=== PATIENT | female | born 1950 | race Two or more races ===

== ENCOUNTER → 2024-05-25 | Outpatient (CLI) | payer MEDICARE, SELFPAY ==
[2024-05-25 13:26] LABS: Glucose Estimated Average 163 mg/dL (80-131); Hemoglobin A1C 7.3 % Hgb (4.8-6.0)
== END | disposition home or self-care (01) ==
LOC: COPL 12:17
PROVIDERS: PCP Family Medicine; Referring Provider Family Medicine; Visit Provider Family Medicine
DX: E11.65 Type 2 diabetes mellitus with hyperglycemia (principal)
CPT/HCPCS: 36415; 83036

== ENCOUNTER → 2024-08-24 | Outpatient (CLI) | payer MEDICARE, SELFPAY ==
[2024-08-24 10:36] LABS: Creatinine MALB Rnd Ur 80 mg/dL (30-125); Microalbumin Creat Ratio 25 mg/gCrea (<30); Microalbumin, Random Urine 20 mg/L (0-300)
[2024-08-24 10:39] LABS: Glucose Estimated Average 166 mg/dL (80-131); Hemoglobin A1C 7.4 % Hgb (4.8-6.0)
[2024-08-24 10:40] LABS: Cardiac Risk Estimate 2.6 RATIO (3.7-5.6); Cholesterol 135 mg/dL (132-200); Free T4 (Free Thyroxine) 1.28 ng/dL (0.89-1.76); HDL Cholesterol 52 mg/dL (40-60); LDL Cholesterol,Calculated 62 mg/dL (0-130); Thyroid Stimulating Hormone 0.45 uIU/mL (0.55-4.78); Triglycerides 104 mg/dL (30-150)
== END | disposition home or self-care (01) ==
LOC: COPL 09:01
PROVIDERS: PCP Family Medicine; Referring Provider Family Medicine; Visit Provider Family Medicine
DX: E03.9 Hypothyroidism, unspecified (principal); E11.65 Type 2 diabetes mellitus with hyperglycemia
CPT/HCPCS: 36415; 80061; 82043; 82570; 83036; 84439; 84443

== ENCOUNTER 2024-09-10 09:43 | Emergency (ER) | payer MEDICARE, SELFPAY ==
--- NOTE | 2024-09-10 10:16 | XR_ITS ---
Examination: PA lateral chest 2 views TECHNIQUE: Upright PA lateral chest 2 views Exam date and time: September 10, 2024 1038 hours Comparison February 03, 2023 INDICATIONS: Chest pain today. FINDINGS: Normal heart size. Lungs are clear. The osseous structures are intact with old fracture left seventh rib Chronic wedging T11 IMPRESSION: No active disease
--- NOTE | 2024-09-10 10:16 | EKG_ITS ---
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
--- NOTE | 2024-09-10 10:17 | PD.EDRME ---
Rapid Medical Screening Exam RME Arrival date/time: 09/10/24 09:43 74-year-old female with a history of hypertension, NSTEMI, presents to the emergency room with a chief complaint of palpitations that began this morning at 4 AM. Patient also states she had an episode of epistaxis that lasted over an hour with multiple clots. The patient is on blood thinners. I have greeted and performed a focused initial assessment of this patient. A comprehensive ED assessment and evaluation of the patient, analysis of all test results, and completion of the medical decision making process will be conducted by additional ED providers. Chief Complaint: Epistaxis/Nasal Foreign Body Time Seen by Provider: 09/10/24 10:00 Vital signs reviewed by provider: Yes
[2024-09-10 10:18] VITALS: BP 144/79; PULSE 78; RESP 18; TEMP 36.8; O2SAT 96; BMI 25.2
[2024-09-10 11:13] LABS: Collection Type, Urine Clean Catch
[2024-09-10 11:17] LABS: Basophils % (Auto) 1 % (0-2.5); Eosinophils # (Auto) 0.5 Thou/mm3 (0.0-0.5); Eosinophils % (Auto) 7 % (0-10); Hematocrit 37.2 % (36.0-46.0); Hemoglobin 11.6 g/dL (12.0-16.0); Immature Granulocytes % (Auto) 0 % (0-0); Immature Granulocytes Auto 0.02 Thou/mm3 (0.00-0.00); Lymphocytes # (Auto) 1.6 Thou/mm3 (1.0-4.8); Lymphocytes % (Auto) 21 % (10-50); Mean Corpuscular HGB Conc 31.2 g/dl (31.0-37.0); Mean Corpuscular Hemoglobin 24.3 pg (25.0-35.0); Mean Corpuscular Volume 78 fL (80-100); Monocytes # (Auto) 0.5 Thou/mm3 (0.0-0.8); Monocytes % (Auto) 6 % (0-12); Neutrophils # (Auto) 4.8 Thou/mm3 (1.8-7.7); Neutrophils % (Auto) 64 % (37-80); Nucleated Red Blood Cell % 0 /100 WBC (0); Platelet Count 274 Thou/mm3 (140-440); RDW Standard Deviation 47.9 fL (36.4-46.3); Red Blood Count 4.77 Miln/mm3 (4.00-5.20); White Blood Count 7.4 Thou/mm3 (3.6-11.0)
[2024-09-10 11:32] LABS: INR 0.9 (0.9-1.3); Partial Thromboplastin Time 27.5 Seconds (22.0-36.0); Prothrombin Time 10.3 Seconds (9.0-12.2)
[2024-09-10 11:33] LABS: Bilirubin,Urine Negative (Negative); Blood,Urine Negative (Negative); Clarity,Urine Clear (Clear/Hazy); Color,Urine Lt-Yellow (Lt Yel-Yel); Glucose, Urine 4+ (Negative); Ketones,Urine Negative (Negative); Leukocyte Esterase,Urine Negative (Negative); Nitrite,Urine Negative (Negative); PH,Urine 5.5 (5.0-7.0); Protein,Urine Negative (Neg - Trace); RBC,Urine 2 /hpf (0-3); Specific Gravity,Urine 1.038 (1.001-1.035); Squamous Epithelial Cell,Urine 2 /hpf (0-5); Urobilinogen,Urine Negative mg/dL (0.0-1.0); WBC,Urine 3 /hpf (0-5)
[2024-09-10 11:39] LABS: B-Type Natriuretic Peptide 28 pg/mL (0-100)
[2024-09-10 11:43] LABS: Alanine Aminotransferase 16 U/L (10-49); Albumin, Serum 4.5 gm/dL (3.4-4.8); Albumin/Globulin Ratio 1.5 (1.2-2.2); Alkaline Phosphatase 93 U/L (46-116); Anion Gap 9 (7-16); Aspartate Amino Transferase 11 U/L (0-34); BUN/Creatinine Ratio 25 Ratio (12-20); Bilirubin,Total 0.4 mg/dL (0.3-1.2); Blood Urea Nitrogen 20 mg/dL (9-23); Calcium 9.6 mg/dL (8.3-10.6); Calcium (Corrected) 9.6 mg/dL (8.5-10.1); Carbon Dioxide 24.7 mMol/L (20.0-31.0); Chloride 106 mMol/L (98-107); Creatinine (Component) 0.8 mg/dL (0.6-1.3); Free T4 (Free Thyroxine) 1.32 ng/dL (0.89-1.76); Glucose 132 mg/dL (74-106); Magnesium 1.9 mg/dL (1.6-2.6); Osmolality,Calculated 284 (275-295); Potassium 4.6 mMol/L (3.4-5.1); Sodium 140 mMol/L (136-145); Thyroid Stimulating Hormone 1.36 uIU/mL (0.55-4.78); Total Protein 7.5 gm/dL (5.7-8.2); Troponin I < 0.002 ng/mL (0.0-0.045); eGFR > 60 See Note
--- NOTE | 2024-09-10 15:08 | PD.EDEPIST ---
ED Epistaxis RME/HPI General Chief complaint: Epistaxis/Nasal Foreign Body Stated complaint: BLOODY NOSE, COUGH, COATES, HEART RACING X 12 HRS Time Seen by Provider: 09/10/24 10:00 Arrival date/time: 09/10/24 09:43 74 year old female with past medical history dvt, nstemi, dm, htn , nose bleed present to emergency room with c/o of blood nose this morning at 1 am, and heart palpitation. Pt report has history of nose bleed but was concern due to the palpatition. pt denies any symptoms now and nose bleed stop an hour after conservative treatment at home. SEVERITY: Symptoms are described as being severe with limitations on activities of daily living CONTEXT: The patient is unable to identify any inciting events. DURATION/TIMING: The symptoms started approximately 1 day improved. ASSOCIATED SYMPTOMS: The patient is unable to identify any other associated symptoms. MODIFYING FACTORS: The patient is unable to identify any alleviating or aggravating symptoms. PERTINENT ROS: no fevers, no cough, no pleuritic pain, no ripping or tearing sensations, denies any lower extremity edema and no unilateral swelling, no chest pain/shortness of breath no nausea,vomiting, diarrhea, no dizziness/headache no rash no loc/syncope episode no abd/back pain no dsyuria,urgency,frequency REVIEW OF SYSTEMS: See History of Present Illness - with the exception of those mentioned in the history of present illness, all other systems reviewed and reported as negative GENERAL: In general the patient is awake, interactive, in an emergency department gurney. HEAD/EYES/EARS/NOSE/THROAT: normo-cephalic, atraumatic, mucus membranes are moist, anicteric, palpebral conjunctiva is pink, trachea is midline. no septal hematoma no active bleeding CARDIOVASCULAR: regular rate and regular rhythm, no murmurs, heart sounds are not distant, strong pulses in all four extremities that are equal and symmetric bilateral upper and lower extremities, normal capillary refill. CHEST/PULMONARY: normal chest rise and fall, good air movement, clear to auscultation bilaterally, normal inspiratory to expiratory ratios without evidence of respiratory distress. NECK: No midline/Paraspinal tenderness, no step off ROM/Strenght intact No Kernig and bruzinski sign. No trauma ABDOMEN: soft, not tender, no masses appreciated BACK: normal range of motion without pain. NEUROLOGICAL: cranio-facial features are symmetric, moves all four extremities equally without obvious limitations or weakness. EXTREMITY: no tenderness to palpation over the long bones or large joints of the bilateral upper and lower extremities, no joint swelling, no joint erythema, no signs of trauma, no unilateral leg swelling and no peripheral edema. SKIN: warm, dry, well-perfused, no jaundice, no rash, no telangiectasias or petechia. PSYCH: calm, cooperative, no evidence of psychosis or agitation RME / HPI RME / HPI Narrative: 09/10/24 09:43 74-year-old female with a history of hypertension, NSTEMI, presents to the emergency room with a chief complaint of palpitations that began this morning at 4 AM. Patient also states she had an episode of epistaxis that lasted over an hour with multiple clots. The patient is on blood thinners. I have greeted and performed a focused initial assessment of this patient. A comprehensive ED assessment and evaluation of the patient, analysis of all test results, and completion of the medical decision making process will be conducted by additional ED providers. Related Data Home Medications ?Medication ?Instructions ?Recorded ?Confirmed Levothyroxine * (SYNTHROID *) 112 mcg PO ACBR #0 tabs 05/04/17 03/27/24 linagliptin 5 mg tablet (Tradjenta) 5 mg PO DAILY 10/18/22 03/27/24 empagliflozin 12.5 mg-metformin 1 tab PO BID 06/06/23 03/27/24 1,000 mg tablet (Synjardy) simvastatin 40 mg tablet 40 mg PO QPM 06/06/23 03/27/24 Previous Rx's ?Medication ?Instructions ?Recorded aspirin 81 mg chewable tablet 81 mg PO QDAY #10 tabs 10/19/22 clopidogrel 75 mg tablet (Plavix) 75 mg PO QDAY #10 tabs 10/19/22 apixaban 5 mg (74 tabs) tablets in 5 mg PO BID #74 tabs 02/05/23 a dose pack (Eliquis DVT-PE Treat 30D Start) Allergies Allergy/AdvReac Type Severity Reaction Status Date / Time No Known Allergies Allergy Verified 09/10/24 09:47 Course Course Course Narrative: review labs, xray, tsh, trop bnp t4, urine and EKG Discharging: This patient presents with epistaxis, which appears to have minimal bleedingresolved. There are no risk factors for bleeding disorders and the patient is hemodynamically stable. No evidence of anemia. Will treat supportively. labs are wnl and stable for discharge, no current sx. Quality Measures none Orders Category Date Time Status EKG (ED ONLY) *Do not use* NOW Care 09/10/24 10:16 Completed EKG (ED Only) Stat Exams 09/10/24 10:16 Draft XR chest 2V Stat Exams 09/10/24 10:16 Completed B-Type Natriuretic Peptide Stat Lab 09/10/24 10:48 Completed CBC Stat Lab 09/10/24 10:48 Completed Comprehensive Metabolic Panel Stat Lab 09/10/24 10:48 Completed Free T4 (Free Thyroxine) Stat Lab 09/10/24 10:48 Completed Magnesium Stat Lab 09/10/24 10:48 Completed Partial Thromboplastin Time Stat Lab 09/10/24 10:48 Completed Prothrombin Time with INR Stat Lab 09/10/24 10:48 Completed TSH [Thyroid Stimulating Hormone] Stat Lab 09/10/24 10:48 Completed Troponin I Stat Lab 09/10/24 10:48 Completed Urinalysis Stat Lab 09/10/24 11:00 Completed Vital Signs Vital signs: Vital Signs Temperature 98.3 F 09/10/24 10:18 Pulse Rate 78 09/10/24 10:18 Respiratory Rate 18 09/10/24 10:18 Blood Pressure 144/79 H 09/10/24 10:18 Pulse Oximetry (%) 96 09/10/24 10:18 Oxygen Delivery Method Room Air 09/10/24 10:18 Procedures -ED EKG Interpretation #1: Date of EK09/10/24 Rate: 72 Interpretation: Reviewed by me EKG Impression: No acute ST-T changes, No ectopy, Bundle branch block and No ischemic changes Epistaxis Patient data External records reviewed:: [facility] previous records Clinical information provided by:: patient Social determinants that could affect healthcare access:: none Patient has the following chronic illnesses:: dvt, htn, dm How is presenting disease/condition affected by chronic disease/condition?: exacerbated by Evaluation data The following diagnostics were reviewed and interpreted by me:: lab results, radiology exam(s) and EKG tracing(s) Lab and/or radiology exams considered but not ordered:: n/a Interpretation Summary: cbc/cmp/bnp/trop wnl cxr: nad tsh wnl Medications / Prescriptions Medications or Prescriptions considered but not ordered:: n/a Medication administrations:: n/a Consultations Consultation(s) initiated? (list below): No Diagnosis Epistaxis Differential Diagnosis: anterior epistaxis and other (dehydration, mi/nstemi, anemia , pna , anxiety ) Most likely diagnosis given after review of the tests above:: epistaxis, Admission Indicated Admission indicated?: not indicated Admission Request Was there a request for admission?: No Disposition Plan Disposition Plan: Discharge Discharge Attestation Discharge Attestation: The patient and all family members were given an opportunity to ask questions and understood the discharge instructions. Discharge instructions specifically effects, indications for sooner follow up or return to the emergency department, and the expected course of current diagnosis. Patient condition: Stable Discharge Plan Plan Patient Disposition: HOME (Self Care) Health Concerns: follow up with PCP as directed Return to ED if symptoms worsen Prescriptions/Referrals Prescriptions/Med Rec: No Action Levothyroxine * (SYNTHROID *) tablet 112 mcg PO ACBR Qty: 0 Tradjenta 5 mg Tablet 5 mg PO DAILY clopidogrel [Plavix] 75 mg tablet 75 mg PO QDAY Qty: 10 0RF aspirin 81 mg tablet,chewable 81 mg PO QDAY Qty: 10 0RF Eliquis DVT-PE Treat 30D Start 5 mg (74 tabs) tablets,dose pack 5 mg PO BID Qty: 74 0RF simvastatin 40 mg Tablet 40 mg PO QPM Synjardy 12.5-1,000 mg tablet 1 tab PO BID Referrals: Louisa Brown MD [Primary Care Provider] - In 1 week Problem List Clinical Impression: Bleeding nose, Palpitations Patient/Caregiver Discharge Instructions Education Materials: ED Epistaxis (Adult) Print Language: Armenian Stand Alone Forms: Abigail Award Info., Patient Portal Info Letter
== END 2024-09-10 15:22 | disposition home or self-care (01) ==
PROVIDERS: Nurse Practitioner Family; Emergency Provider Emergency Medicine; PCP Family Medicine
DX: R04.0 Epistaxis (principal); R00.2 Palpitations; I10 Essential (primary) hypertension; I25.2 Old myocardial infarction
CPT/HCPCS: 36415; 71046; 80053; 81001; 83735; 83880; 84439; 84443; 84484; 85025; 85610; 85730; 93005; 99283

== ENCOUNTER → 2024-09-28 | Outpatient (CLI) | payer MEDICARE, SELFPAY ==
[2024-09-28 13:47] LABS: Free T4 (Free Thyroxine) 1.09 ng/dL (0.89-1.76); Thyroid Stimulating Hormone 1.38 uIU/mL (0.55-4.78)
== END | disposition home or self-care (01) ==
LOC: COPL 12:21
PROVIDERS: PCP Family Medicine; Referring Provider Family Medicine; Visit Provider Family Medicine
DX: E03.9 Hypothyroidism, unspecified (principal)
CPT/HCPCS: 36415; 84439; 84443

== ENCOUNTER 2024-10-30 15:11 | Emergency (ER) | payer MEDICARE, SELFPAY ==
[2024-10-30 15:12] VITALS: BMI 25.6
[2024-10-30 16:10] VITALS: BP 122/62; PULSE 78; RESP 18; TEMP 36.8; O2SAT 95
--- NOTE | 2024-10-30 16:36 | PD.EDRME ---
Rapid Medical Screening Exam RME Arrival date/time: 10/30/24 15:11 This is a 74-year-old female that comes in with complaints of abdominal pain and back pain for the last few days. Patient has a history of diabetes, hyperlipidemia, PA, DVT. I have greeted and performed a focused initial assessment of this patient. Initial appropriate labs ordered at this time. A comprehensive ED assessment and evaluation of the patient and analysis of all test and completion of medical decision making process will be conducted by additional ED provider. Chief Complaint: Abdominal Pain Time Seen by Provider: 10/30/24 16:22 Vital signs: Vital Signs Temperature 98.3 F 10/30/24 16:10 Pulse Rate 78 10/30/24 16:10 Respiratory Rate 18 10/30/24 16:10 Blood Pressure 122/62 10/30/24 16:10 Pulse Oximetry (%) 95 10/30/24 16:10 Oxygen Delivery Method Room Air 10/30/24 16:10
[2024-10-30 17:10] LABS: Basophils % (Auto) 0 % (0-2.5); Eosinophils # (Auto) 0.4 Thou/mm3 (0.0-0.5); Eosinophils % (Auto) 3 % (0-10); Hematocrit 34.2 % (36.0-46.0); Hemoglobin 10.7 g/dL (12.0-16.0); Immature Granulocytes % (Auto) 0 % (0-0); Immature Granulocytes Auto 0.04 Thou/mm3 (0.00-0.00); Lymphocytes # (Auto) 0.9 Thou/mm3 (1.0-4.8); Lymphocytes % (Auto) 7 % (10-50); Mean Corpuscular HGB Conc 31.3 g/dl (31.0-37.0); Mean Corpuscular Hemoglobin 23.9 pg (25.0-35.0); Mean Corpuscular Volume 76 fL (80-100); Monocytes # (Auto) 0.9 Thou/mm3 (0.0-0.8); Monocytes % (Auto) 7 % (0-12); Neutrophils # (Auto) 9.9 Thou/mm3 (1.8-7.7); Neutrophils % (Auto) 82 % (37-80); Nucleated Red Blood Cell % 0 /100 WBC (0); Platelet Count 273 Thou/mm3 (140-440); Red Blood Count 4.48 Miln/mm3 (4.00-5.20); White Blood Count 12.1 Thou/mm3 (3.6-11.0)
[2024-10-30 17:21] LABS: Collection Type, Urine Voided
[2024-10-30 17:30] LABS: Alanine Aminotransferase 11 U/L (10-49); Albumin, Serum 4.5 gm/dL (3.4-4.8); Albumin/Globulin Ratio 1.6 (1.2-2.2); Alkaline Phosphatase 127 U/L (46-116); Anion Gap 13 (7-16); Aspartate Amino Transferase 14 U/L (0-34); BUN/Creatinine Ratio 27 Ratio (12-20); Bilirubin,Total 0.4 mg/dL (0.3-1.2); Blood Urea Nitrogen 27 mg/dL (9-23); Chloride 108 mMol/L (98-107); Estimated Creatinine Clearance 41.9 mL/min (>60); Globulin 2.9 gm/dL (2.3-3.5); Glucose 223 mg/dL (74-106); Lipase 57 U/L (12-53); Osmolality,Calculated 297 (275-295); Potassium 4.3 mMol/L (3.4-5.1); Sodium 143 mMol/L (136-145); Total Protein 7.4 gm/dL (5.7-8.2); eGFR 58 See Note
[2024-10-30 17:31] LABS: Bilirubin,Urine Negative (Negative); Blood,Urine Negative (Negative); Clarity,Urine Clear (Clear/Hazy); Color,Urine Lt-Yellow (Lt Yel-Yel); Culture Indicated,Urine Not Indicated; Glucose, Urine 4+ (Negative); Ketones,Urine Negative (Negative); Leukocyte Esterase,Urine Negative (Negative); Nitrite,Urine Negative (Negative); PH,Urine 5.5 (5.0-7.0); Protein,Urine Negative (Neg - Trace); RBC,Urine 2 /hpf (0-3); Specific Gravity,Urine 1.038 (1.001-1.035); Squamous Epithelial Cell,Urine 1 /hpf (0-5); Urobilinogen,Urine Negative mg/dL (0.0-1.0); WBC,Urine 1 /hpf (0-5)
--- NOTE | 2024-10-30 19:13 | PD.EDABDPN ---
ED Abdominal Pain RME/HPI General Chief Complaint: Abdominal Pain Stated complaint: BACK/ABD PAIN AND CHILLS FOR x3 DAYS Time seen by provider: 10/30/24 16:22 Arrival date/time: 10/30/24 15:11 RME / HPI RME / HPI narrative: 10/30/24 15:11 This is a 74-year-old female that comes in with complaints of abdominal pain and back pain for the last few days. Patient has a history of diabetes, hyperlipidemia, [place], DVT. I have greeted and performed a focused initial assessment of this patient. Initial appropriate labs ordered at this time. A comprehensive ED assessment and evaluation of the patient and analysis of all test and completion of medical decision making process will be conducted by additional ED provider. This section includes all my notes and documentations, including HPI, PE, and ED course. Clayton Rolon MD HPI: 74 y/o female with SHx of section and Hx of Type II DM BIB daughter presents to ED c/o upper abdominal pain x approximately 12 hours. Patient also reports right shoulder pain x 3 days. With vomiting and diarrhea. No other complaints. ROS: All negative except as documented in HPI. Physical Exam: General: Alert and oriented. Appears uncomfortable. Eyes: Conjunctivae and lids clear. ENT: No nasal congestion. Neck: Supple. Heart: RRR. Lungs: No respiratory distress. Good air movement. No rhonchi, wheezing, rales. Abdomen: Soft with diffuse tenderness, difficult to localize. Normal bowel sounds. No distension. No rebound or guarding. Back: No CVA tenderness. Skin: Warm and dry. Neuro: Alert and oriented X 3. Musculoskeletal: Muscle spasm in the area posterior to right shoulder noted. I reviewed all diagnostic test results. My review of the abdominal CT report is colitis. My review of the gallbladder US report is no acute findings. Blood tests and urine tests unremarkable, except WBC 12.1. At this point, diagnoses include colitis and right shouler pain. Treatment here included Tylenol with Codeine, Zofran. Significant improvement noted. Recommend outpatient treatment. Based on my best medical judgment, made decision no further evaluation or treatment indicated at this time. Patient understands and agrees to the discharge instructions customized and printed, see below. Discharge instructions from Dr. Rolon: 1. After evaluation, your abdominal symptoms are due to colitis, infection/inflammation of your colon. 2. Take Cipro and Flagyl for the infection. 3. Zofran for nausea/vomiting. 4. Tylenol with codeine for severe pain. 5. Clear liquid diet for 24 hours then advance as tolerated. 6. To prevent dehydration, increase oral fluid and maintain clear urine.? If dark or yellow, increase oral fluid. 7. Your pain behind the right shoulder is musculoskeletal, see attached handout. Apply ice or heat if helpful. Ibuprofen/Tylenol as needed. Topical lidocaine patches as needed. 8. See a private doctor on for recheck. Ask to review all test results and official radiology reports, to make sure you receive all necessary follow-ups and monitoring. To assess for serious intra-abdominal condition, ask for help with more investigation not available here in the ER.? Such as EGD or scoping the stomach, colonoscopy or scoping the colon, and referral to see building construction teacher. Ask for help until you are completely better, including the pain behind your right shoulder. 9. Seek immediate medical care with worsening, fever, or with any concerns. Clayton Rolon MD Related Data Home Medications ?Medication ?Instructions ?Recorded ?Confirmed Levothyroxine * (SYNTHROID *) 112 mcg PO ACBR #0 tabs 05/04/17 03/27/24 linagliptin 5 mg tablet (Tradjenta) 5 mg PO DAILY 10/18/22 03/27/24 empagliflozin 12.5 mg-metformin 1 tab PO BID 06/06/23 03/27/24 1,000 mg tablet (Synjardy) simvastatin 40 mg tablet 40 mg PO QPM 06/06/23 03/27/24 Previous Rx's ?Medication ?Instructions ?Recorded aspirin 81 mg chewable tablet 81 mg PO QDAY #10 tabs 10/19/22 clopidogrel 75 mg tablet (Plavix) 75 mg PO QDAY #10 tabs 10/19/22 apixaban 5 mg (74 tabs) tablets in 5 mg PO BID #74 tabs 02/05/23 a dose pack (Eliquis DVT-PE Treat 30D Start) acetaminophen 300 mg-codeine 30 mg 2 tab PO Q8H PRN pain #20 tabs 10/30/24 tablet ciprofloxacin HCl 500 mg tablet 500 mg PO BID 5 days #10 tabs 10/30/24 (Cipro) metronidazole 500 mg tablet 500 mg PO BID 5 days #10 tabs 10/30/24 ondansetron 4 mg disintegrating 4 mg PO TID PRN nausea and 10/30/24 tablet vomiting 30 days #10 tabs Allergies Allergy/AdvReac Type Severity Reaction Status Date / Time No Known Allergies Allergy Verified 10/30/24 15:14 Review of Systems Review of Systems Systems Reviewed: All systems reviewed, normal except as documented Past Medical History Past Medical History CARDIAC: Positive Cardiac Disorders (heart attack 2022), Myocardial Infarction, Angina, Hypercholesterolemia and Hypertension MUSCULOSKELETAL: Positive Musculoskeletal Disorders (leg pain) and Arthritis ENT: Positive Glaucoma ENDOCRINE: Positive Endocrine Disorders, Diabetes Mellitus Type 2 and Hypothyroidism OTHER HISTORY: Positive [place] Family History FAMILY HISTORY: Positive Family Cancer Surgical History SURGICAL: Positive Cardiac Surgery, Angiogram, Endocrine Surgery, Thyroidectomy and Section (x2) ED Exam Narrative Physical exam: Refer to HPI above Course Quality Measures none Orders Category Date Time Status CT abdomen pelvis wo con Stat Exams 10/30/24 19:16 Completed US gall bladder Stat Exams 10/30/24 19:16 Completed CBC Stat Lab 10/30/24 16:53 Completed Comprehensive Metabolic Panel Stat Lab 10/30/24 16:53 Completed Lipase Stat Lab 10/30/24 16:53 Completed Urinalysis, C/S if Indicated Stat Lab 10/30/24 17:13 Completed ACETAMINOPHEN w/COD 300-30 [Tylenol w/Cod #3] Med 10/30/24 19:16 Discontinued 2 tab PO X1 ONE Ondansetron Odt [Zofran Odt] Med 10/30/24 19:16 Discontinued 4 mg PO X1 ONE Vital Signs Vital signs: Vital Signs Temperature 98.3 F 10/30/24 16:10 Pulse Rate 78 10/30/24 16:10 Respiratory Rate 18 10/30/24 16:10 Blood Pressure 122/62 10/30/24 16:10 Pulse Oximetry (%) 95 10/30/24 16:10 Oxygen Delivery Method Room Air 10/30/24 16:10 Abdominal Pain MDM MDM Narrative MDM Narrative:: Scribe Attestation: IJulieta am scribing for and in the presence of Dr. Rolon. Provider Notation: Although this document has been carefully reviewed, there may still be some phonetic and other typographical errors.? These errors are purely grammatical due to imperfections in the software program and should not be construed in any way to? compromise the substance of the patient's medical care during this visit. 74 y/o female with SHx of section presents to ED c/o upper abdominal pain x approximately 12 hours. Patient also reports right shoulder pain x 3 days. Patient data External records reviewed:: [facility] previous records (Prior ED records from 09/10/24 reviewed. Patient was seen for Bleeding nose.) Clinical information provided by:: patient Social determinants that could affect healthcare access:: none Patient has the following chronic illnesses:: Angina, Hypercholesterolemia, Hypertension, Arthritis, Glaucoma, Diabetes Mellitus Type 2 and Hypothyroidism How is presenting disease/condition affected by chronic disease/condition?: exacerbated by Evaluation data The following diagnostics were reviewed and interpreted by me:: lab results and radiology exam(s) Lab and/or radiology exams considered but not ordered:: None Interpretation Summary: I reviewed all diagnostic test results. My review of the abdominal CT report is colitis. My review of the gallbladder US report is no acute findings. Blood tests and urine tests unremarkable, except WBC 12.1. Medications / Prescriptions Medications or Prescriptions considered but not ordered:: None Medication administrations:: Medication Administration History Discontinued Medications Acetaminophen/Codeine Phosphate (Acetaminophen W/Cod 300-30 Tablet) 2 tab PO X1 ONE Stop: 10/30/24 19:17 Last Admin: 10/30/24 20:29 Dose: 2 tab Documented By: CECIL Ondansetron HCl (Ondansetron Odt 4 Mg Tabrap) 4 mg PO X1 ONE; Protocol Stop: 10/30/24 19:17 Last Admin: 10/30/24 20:29 Dose: 4 mg Documented By: CECIL Tylenol with Codeine, Zofran Consultations Consultation(s) initiated? (list below): No Diagnosis Differential diagnosis abdominal pain: abdominal pain, acute appendicitis, calculus of kidney, constipation, diverticulitis, endometriosis, gastroenteritis, pancreatitis, small bowel obstruction and other (Gastritis, Muscle strain) Most likely diagnosis given after review of the tests above:: colitis, musculoskeletal right shoulder pain Admission Indicated Admission indicated?: not indicated Explain why admission is indicated or not indicated:: With significant improvement, there was no indication for admission. Admission Request Was there a request for admission?: No Disposition Plan Disposition Plan: Discharge Discharge Attestation Discharge Attestation: The patient and all family members were given an opportunity to ask questions and understood the discharge instructions. Discharge instructions specifically effects, indications for sooner follow up or return to the emergency department, and the expected course of current diagnosis. Patient condition: Stable Discharge Plan Plan Patient Disposition: HOME (Self Care) Prescriptions/Referrals Prescriptions/Med Rec: New metronidazole 500 mg tablet 500 mg PO BID 5 Days Qty: 10 0RF acetaminophen-codeine 300-30 mg tablet 2 tab PO Q8H MDD 6 PRN (Reason: pain) Qty: 20 0RF ciprofloxacin HCl [Cipro] 500 mg tablet 500 mg PO BID 5 Days Qty: 10 0RF ondansetron 4 mg tablet,disintegrating 4 mg PO TID PRN (Reason: nausea and vomiting) 30 Days Qty: 10 0RF No Action Levothyroxine * (SYNTHROID *) tablet 112 mcg PO ACBR Qty: 0 Tradjenta 5 mg Tablet 5 mg PO DAILY clopidogrel [Plavix] 75 mg tablet 75 mg PO QDAY Qty: 10 0RF aspirin 81 mg tablet,chewable 81 mg PO QDAY Qty: 10 0RF Eliquis DVT-PE Treat 30D Start 5 mg (74 tabs) tablets,dose pack 5 mg PO BID Qty: 74 0RF simvastatin 40 mg Tablet 40 mg PO QPM Synjardy 12.5-1,000 mg tablet 1 tab PO BID Referrals: Louisa Brown MD [Primary Care Provider] - In 1 week Problem List Clinical Impression: Colitis, Right shoulder pain Patient/Caregiver Discharge Instructions Discharge Activity: activity as tolerated Education Materials: ED Muscle Strain, Extremity, ED Gastroenteritis, Viral (Adult) Additional Instructions: Discharge instructions from Dr. Rolon: 1. After evaluation, your abdominal symptoms are due to colitis, infection/inflammation of your colon. 2. Take Cipro and Flagyl for the infection. 3. Zofran for nausea/vomiting. 4. Tylenol with codeine for severe pain. 5. Clear liquid diet for 24 hours then advance as tolerated. 6. To prevent dehydration, increase oral fluid and maintain clear urine.? If dark or yellow, increase oral fluid. 7. Your pain behind the right shoulder is musculoskeletal, see attached handout. Apply ice or heat if helpful. Ibuprofen/Tylenol as needed. Topical lidocaine patches as needed. 8. See a private doctor on for recheck. Ask to review all test results and official radiology reports, to make sure you receive all necessary follow-ups and monitoring. To assess for serious intra-abdominal condition, ask for help with more investigation not available here in the ER.? Such as EGD or scoping the stomach, colonoscopy or scoping the colon, and referral to see building construction teacher. Ask for help until you are completely better, including the pain behind your right shoulder. 9. Seek immediate medical care with worsening, fever, or with any concerns. Instrucciones de godwin del Dr. Rolon: 1. Tras la evaluaci?n, bozena s?ntomas abdominales se deben a colitis, infecci?n/inflamaci?n del colon. 2. [place] Cipro y Flagyl para la infecci?n. 3. Zofran para las n?useas/v?mitos. 4. Tylenol con code?na para el dolor intenso. 5. Dieta de l?quidos sven ethan 24 horas y luego aumente la dosis seg?n la tolerancia. 6. Para prevenir la deshidrataci?n, aumente la ingesta de l?quidos y mantenga la orina cosmo. Si la orina es oscura o amarilla, aumente la ingesta de l?quidos. 7. Treviño dolor detr?s del hombro derecho es musculoesquel?[place] (consulte el folleto adjunto). Aplique hielo o calor si le resulta ?til. Ibuprofeno/Tylenol seg?n sea necesario. Parches t?picos de lidoca?na seg?n sea necesario. 8. Consulte a un m?dico particular para jose luis nueva revisi?n. Solicite la revisi?n de todos los resultados de las pruebas y los informes radiol?gicos oficiales para asegurarse de recibir todos los seguimientos y la monitorizaci?n necesarios. Para evaluar jose luis afecci?n intraabdominal grave, solicite ayuda con otras pruebas que no est?n disponibles en urgencias, aftoumata jose luis endoscopia estomacal (EGD) o jose luis endoscopia g?strica, jose luis colonoscopia o jose luis endoscopia de colon, y derivaci?n a un gastroenter?logo. Solicite ayuda hasta que se recupere por completo, incluyendo el dolor detr?s del hombro derecho. 9. Busque atenci?n m?dica inmediata si presenta empeoramiento, fiebre o cualquier inquietud. Print Language: Korean Stand Alone Forms: Abigail Award Info., Patient Portal Info Letter
--- NOTE | 2024-10-30 19:16 | XR_ITS ---
Examination: Abdomen sonogram, Limited Date and time of exam: October 30, 2024 1936 hours INDICATIONS: Right upper abdominal pain and tenderness beginning 3 days ago Technique: Real-time de la cruz scale transabdominal sonographic images of the upper abdomen obtained. Findings: Normal gallbladder Normal common bile duct 0.3 cm Pancreatic head 2.1 cm Liver 14.1 cm fatty infiltration Normal hepatopedal portal venous flow Patent IVC IMPRESSION: Normal gallbladder Fatty liver
--- NOTE | 2024-10-30 19:16 | XR_ITS ---
Examination: CT abdomen and pelvis without contrast. Coronal 3-D reconstructions. Sagittal 2-D reconstructions. Date and time of exam:October 30, 2024 1955 hours INDICATIONS: Also pain today CTDI: vol (mGy): 6.49 DLP: (mGycm): 348 Technique: Axial images of the abdomen have been obtained, 3 mm slice thickness Intravenous contrast material has not been administered. Low dose protocols were performed. One or more of the following dose reduction techniques were used; automated exposure control, adjustment of the mA and/or KV according to patient size, use of iterative reconstruction technique. 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
[2024-10-30] MEDS: ACETAMINOPHEN w/COD 300-30 TABLET 2 TAB PO (20:29)
[2024-10-30] MEDS: ONDANSETRON ODT 4 MG TABRAP PO (20:29)
[2024-10-30 22:04] VITALS: BP 142/67; PULSE 89; RESP 19; TEMP 36.7; O2SAT 99
== END 2024-10-30 22:05 | disposition home or self-care (01) ==
PROVIDERS: Nurse Practitioner Family; Emergency Provider Emergency Medicine; PCP Family Medicine
DX: K52.9 Noninfective gastroenteritis and colitis, unspecified (principal); M25.511 Pain in right shoulder; E11.9 Type 2 diabetes mellitus without complications; E78.5 Hyperlipidemia, unspecified; I25.2 Old myocardial infarction
CPT/HCPCS: 36415; 74176; 76705; 80053; 81001; 83690; 85025; 99284; Q0162; A9270

== ENCOUNTER → 2024-11-05 | Outpatient (CLI) | payer MEDICARE, SELFPAY ==
--- NOTE | 2024-11-05 08:00 | XR_ITS ---
Examination: Breast ultrasound, unilateral, left complete Date and time of exam: November 05, 2024 0734 hours INDICATIONS: Probably benign left axillary lymph node on left breast sonogram May 04, 2024 Technique: Real-time de la cruz scale ultrasonographic imaging performed left breast including all 4 quadrants as well as nipple retroareolar and axillary region. Findings: 12:00 cyst 7 x 7 mm 2:00 cyst 6 x 5 mm 1:00 nodule circumscribed 23 x 20 mm IMPRESSION: BI-RADS Category 3: Probably benign findings One additional 6 month left breast sonogram follow-up is needed to document stability of 1:00 nodule described above
--- NOTE | 2024-11-05 08:30 | XR_ITS ---
Examination: Diagnostic digital mammography, unilateral, left Computer aided detection 3-D breast Tomosynthesis, unilateral Date and time of exam: November 05, 2024 0814 hours INDICATIONS: Mammogram May 04, 2024 focal asymmetry inner left breast on the spot compression CC view Technique: Nonmagnified MLO, CC views of the left breast have been obtained, reconstructed from 3-D Tomosynthesis images. R2 computer aided detection program utilized for evaluation of suspicious masses and/or abnormal calcifications. 3-D Tomosynthesis images obtained. Findings: The breast is heterogeneously dense, which may obscure small masses 1:00 nodule left breast 14 mm Impression: BI-RADS category 3: Probably benign findings One additional 6 month left mammogram follow-up is needed to document stability of nodule described above
== END | disposition home or self-care (01) ==
LOC: CDIM 07:34
PROVIDERS: Referring Provider Family Medicine; Visit Provider Family Medicine
DX: R92.332 Mammographic heterogeneous density, left breast (principal); N63.21 Unspecified lump in the left breast, upper outer quadrant
CPT/HCPCS: 76641; 77061; 77065; G0279

== ENCOUNTER 2024-11-23 07:35 | Day surgery (SDC) | payer MEDICARE, SELFPAY ==
[2024-11-22 11:34] VITALS: BMI 24.5
[2024-11-23] VITALS (9 sets, daily range): BP systolic 100–146; BP diastolic 49–65; PULSE 58–98; RESP 13–21; TEMP 36.5–36.7; O2SAT 95–100; BMI 23.3
[2024-11-23] MEDS: DEXTROSE 5%-WATER 500 ML 20 ML IV (10:12)
[2024-11-23] MEDS: MIDAZOLAM INJ 1 MG/ML VIAL 2 ML (ASD USE ONLY) 2 MG IVP (10:13)
[2024-11-23] MEDS: fentaNYL CIT INJ 50 mCg/ML AMP 2ML (ASD USE ONLY) IVP (10:16)
[2024-11-23] MEDS: DiphenhydrAMINE INJ 50 MG/ML VIAL 25 MG IVP (10:25)
== END 2024-11-23 11:18 | disposition home or self-care (01) ==
PROVIDERS: PCP Family Medicine; Referring Provider Specialist; Visit Provider Specialist
PROC: 0DBE8ZX Excision of Large Intestine, Via Natural or Artificial Opening Endoscopic, Diagnostic (ICD-10-PCS; CPT 45380; principal; 2024-11-23 09:00)
DX: K63.89 Other specified diseases of intestine (principal); K62.89 Other specified diseases of anus and rectum; K64.9 Unspecified hemorrhoids; K57.30 Diverticulosis of large intestine without perforation or abscess without bleeding
CPT/HCPCS: 45380; J1200; J2250; J3010; J7060

== ENCOUNTER → 2024-12-24 | Outpatient (CLI) | payer MEDICARE, SELFPAY ==
[2024-12-24 17:36] LABS: Basophils # (Auto) 0.1 Thou/mm3 (0.0-0.2); Basophils % (Auto) 1 % (0-2.5); Eosinophils # (Auto) 0.5 Thou/mm3 (0.0-0.5); Eosinophils % (Auto) 8 % (0-10); Hematocrit 32.0 % (36.0-46.0); Hemoglobin 10.0 g/dL (12.0-16.0); Immature Granulocytes Auto 0.02 Thou/mm3 (0.00-0.00); Lymphocytes # (Auto) 1.5 Thou/mm3 (1.0-4.8); Lymphocytes % (Auto) 26 % (10-50); Mean Corpuscular HGB Conc 31.3 g/dl (31.0-37.0); Mean Corpuscular Hemoglobin 23.1 pg (25.0-35.0); Mean Corpuscular Volume 74 fL (80-100); Monocytes # (Auto) 0.5 Thou/mm3 (0.0-0.8); Monocytes % (Auto) 9 % (0-12); Neutrophils # (Auto) 3.1 Thou/mm3 (1.8-7.7); Neutrophils % (Auto) 55 % (37-80); Nucleated Red Blood Cell # 0.00 Thou/mm3 (0.00-0.00); Nucleated Red Blood Cell % 0 /100 WBC (0); Platelet Count 319 Thou/mm3 (140-440); RDW Standard Deviation 50.1 fL (36.4-46.3); Red Blood Count 4.32 Miln/mm3 (4.00-5.20); White Blood Count 5.6 Thou/mm3 (3.6-11.0)
[2024-12-24 17:51] LABS: Anion Gap 12 (7-16); BUN/Creatinine Ratio 24 Ratio (12-20); Blood Urea Nitrogen 24 mg/dL (9-23); Calcium 9.2 mg/dL (8.3-10.6); Carbon Dioxide 24.5 mMol/L (20.0-31.0); Chloride 108 mMol/L (98-107); Creatinine (Component) 1.0 mg/dL (0.6-1.3); Glucose 96 mg/dL (74-106); Osmolality,Calculated 290 (275-295); Potassium 4.3 mMol/L (3.4-5.1); Sodium 144 mMol/L (136-145); eGFR 58 See Note
[2024-12-24 18:07] LABS: INR 0.9 (0.9-1.3); Partial Thromboplastin Time 28.2 Seconds (22.0-36.0); Prothrombin Time 9.8 Seconds (9.0-12.2)
== END | disposition home or self-care (01) ==
LOC: COPL 16:21
PROVIDERS: PCP Family Medicine; Referring Provider Internal Medicine; Visit Provider Internal Medicine
DX: I25.10 Atherosclerotic heart disease of native coronary artery without angina pectoris (principal); I48.91 Unspecified atrial fibrillation
CPT/HCPCS: 36415; 80048; 85025; 85610; 85730

== ENCOUNTER 2025-01-04 09:29 | Emergency (ER) | payer MEDICARE, SELFPAY ==
[2025-01-04 10:07] VITALS: BP 161/75; PULSE 66; RESP 18; TEMP 36.8; O2SAT 98; BMI 24.5
--- NOTE | 2025-01-04 10:13 | XR_ITS ---
Examination: Duplex scan of the lower extremity, unilateral left complete Date and time of exam: December 282024 1106 hours INDICATIONS: Left leg pain beginning today 2017 Technique: Duplex scan of the extremity veins using B-mode/grayscale imaging and Doppler spectral analysis and color flow Attention is directed to internal echogenicity, compression and augmentation involving these veins, color flow assessment, spectral analysis Findings: Major deep venous structures in the extremity demonstrate normal course and caliber. There is no evidence of deep vein thrombosis. Normal color flow and spectral analysis Impression: Negative for DVT..
--- NOTE | 2025-01-04 10:13 | PD.EDLOWEX ---
Lower Extremity Injury RME/HPI General Chief Complaint: Extremity Injury, Lower Stated Complaint: Left leg pain after angiogram on 12/31/24 Time Seen by Provider: 01/04/25 11:29 Source: patient Arrival date/time: 01/04/25 09:29 74-year-old female with a history of hypertension, type 2 diabetes, hyperlipidemia presents to the emergency room with a chief complaint of pain and tenderness to her left leg x 4 days. Patient states that she had an angiogram done on 12/31/2024. Mode of arrival: ambulatory Limitations: no limitations Related Data Home Medications ?Medication ?Instructions ?Recorded ?Confirmed empagliflozin 12.5 mg-metformin 1 tab PO BID 06/06/23 11/23/24 1,000 mg tablet (Synjardy) simvastatin 40 mg tablet 40 mg PO QPM 06/06/23 11/23/24 carvedilol 25 mg tablet 25 mg PO QDAY 11/23/24 11/23/24 levothyroxine 100 mcg tablet 100 mcg PO QDAY 11/23/24 11/23/24 nitroglycerin 0.4 mg sublingual 0.4 mg buccal 11/23/24 tablet sitagliptin phosphate 100 mg 100 mg PO QDAY 11/23/24 11/23/24 tablet (Januvia) Previous Rx's ?Medication ?Instructions ?Recorded aspirin 81 mg chewable tablet 81 mg PO QDAY #10 tabs 10/19/22 clopidogrel 75 mg tablet (Plavix) 75 mg PO QDAY #10 tabs 10/19/22 Allergies Allergy/AdvReac Type Severity Reaction Status Date / Time No Known Allergies Allergy Verified 01/04/25 09:35 Review of Systems Review of Systems Systems Reviewed: All systems reviewed, normal except as documented Constitutional Constitutional: Reports system reviewed and no additional complaints, except as documented, Denies fatigue, Denies fever(s), Denies headache(s) and Denies weakness Eyes Eyes: Reports system reviewed and no additional complaints, except as documented, Denies blurry vision and Denies change in vision ENT Ears, Nose, Mouth, and Throat: Reports system reviewed and no additional complaints, except as documented, Denies otalgia, Denies headache(s), Denies nasal congestion, Denies throat swelling and Denies vertigo Cardiovascular Cardiovascular: Reports system reviewed and no additional complaints, except as documented, Denies chest pain, Denies dyspnea and Denies dyspnea on exertion Respiratory Respiratory: Reports system reviewed and no additional complaints, except as documented, Denies chest congestion, Denies cough, Denies dyspnea, Denies dyspnea on exertion and Denies wheezing Gastrointestinal Gastrointestinal: Reports system reviewed and no additional complaints, except as documented, Denies abdominal pain, Denies cramping, Denies nausea and Denies vomiting Genitourinary Genitourinary: Reports system reviewed and no additional complaints, except as documented Musculoskeletal Musculoskeletal: Reports system reviewed and no additional complaints, except as documented and Denies back pain Integumentary/Breasts Skin/Breast: Reports system reviewed and no additional complaints, except as documented and Denies wounds Neurologic Neurologic: Reports system reviewed and no additional complaints, except as documented, Denies confusion, Denies headache(s), Denies lack of coordination, Denies vertigo and Denies weakness Psychiatric Psychiatric: Reports system reviewed and no additional complaints, except as documented, Denies anxiety, Denies confusion, Denies depression, Denies paranoia, Denies suicidal ideation and Denies tactile hallucinations Endocrine Endocrine: Reports system reviewed and no additional complaints, except as documented and Denies fatigue Hematologic/Lymphatic Hematologic/Lymphatic: Reports system reviewed and no additional complaints, except as documented and Denies lymphadenopathy Allergic/Immunologic Allergic/Immunologic: Reports system reviewed and no additional complaints, except as documented, Denies throat swelling, Denies urticaria and Denies wheezing ED Exam General Limitations: Present no limitations General appearance: Present alert and in no apparent distress Head Head exam: Present atraumatic Eye Eye exam: Present normal appearance, PERRL and EOMI ENT ENT exam: Present normal exam, normal oropharynx and mucous membranes moist Neck Neck exam: Present normal inspection, full ROM and trachea midline Chest Chest inspection: Present normal inspection and symmetric chest wall rise Respiratory Respiratory exam: Present normal lung sounds bilaterally Cardiovascular Cardiovascular exam: Present regular rate, normal rhythm and normal heart sounds Abdominal Exam Abdominal exam: Present soft and normal bowel sounds Extremities Exam Extremities exam: Present normal inspection and full ROM Expanded Lower Extremity Exam Hip/Pelvis exam: Present normal inspection Upper leg exam: Present normal inspection; Absent tenderness or swelling Knee exam: Present normal inspection Lower leg exam: Present normal inspection, full ROM and tenderness; Absent swelling, erythema or Homans' sign Ankle exam: Present normal inspection Foot/toe exam: Present normal inspection; Absent tenderness or swelling Back Exam Back exam: Present normal inspection and full ROM Neurological Exam Neurological exam: Present alert, oriented X3 and CN II-XII intact Psychiatric Psychiatric exam: Present normal affect and normal mood Skin Skin exam: Present warm, dry, intact and normal color Course Quality Measures none Orders Category Date Time Status US venous doppler LE LT Stat Exams 01/04/25 10:13 Completed CBC Stat Lab 01/04/25 10:30 Completed CMP [Comprehensive Metabolic Panel] Stat Lab 01/04/25 10:30 Completed Vital Signs Vital signs: Vital Signs Temperature 98.2 F 01/04/25 10:07 Pulse Rate 66 01/04/25 10:07 Respiratory Rate 18 01/04/25 10:07 Blood Pressure 161/75 H 01/04/25 10:07 Pulse Oximetry (%) 98 01/04/25 10:07 Oxygen Delivery Method Room Air 01/04/25 10:07 Extremity Injury, Lower MDM Narrative MDM Narrative:: 74-year-old female with a history of hypertension, type 2 diabetes, hyperlipidemia presents to the emergency room with a chief complaint of pain and tenderness to her left leg x 4 days. Patient states that she had an angiogram done on 12/31/2024. Patient is hemodynamically stable and in no apparent distress Physical examination shows tenderness and pain to the patient's left leg. There is no erythema there is no swelling. There is no erythema swelling to the upper leg or to the foot. There is a negative Homans' sign. An ultrasound Doppler of the left lower extremity was completed and was negative for any DVT CBC CMP are within normal limits Patient was discharged and educated to follow-up with primary care provider in the next 24 to 48 hours and return to the emergency room for any evidence of worsening signs or symptoms Patient data External records reviewed:: [facility] previous records Clinical information provided by:: patient Social determinants that could affect healthcare access:: none Patient has the following chronic illnesses:: No chronic illness How is presenting disease/condition affected by chronic disease/condition?: no chronic disease Evaluation data The following diagnostics were reviewed and interpreted by me:: lab results and radiology exam(s) Lab and/or radiology exams considered but not ordered:: Labs and radiology exams considered and ordered Interpretation Summary: Ultrasound Doppler-Findings: Major deep venous structures in the extremity demonstrate normal course and caliber. There is no evidence of deep vein thrombosis. Normal color flow and spectral analysis Impression: Negative for DVT.. Medications / Prescriptions Medications or Prescriptions considered but not ordered:: No medication given Medication administrations:: No medication given Consultations Consultation(s) initiated? (list below): No Diagnosis Extremity Injury, Lower Differential Diagnosis: other (Acute left leg pain/DVT) Most likely diagnosis given after review of the tests above:: Acute left leg pain Admission Indicated Admission indicated?: not indicated Admission Request Was there a request for admission?: No Disposition Plan Disposition Plan: Discharge Discharge Attestation Discharge Attestation: The patient and all family members were given an opportunity to ask questions and understood the discharge instructions. Discharge instructions specifically effects, indications for sooner follow up or return to the emergency department, and the expected course of current diagnosis. Patient condition: Stable Discharge Plan Plan Patient Disposition: HOME (Self Care) Discharge Disposition comment: Stable Prescriptions/Referrals Prescriptions/Med Rec: No Action clopidogrel [Plavix] 75 mg tablet 75 mg PO QDAY Qty: 10 0RF aspirin 81 mg tablet,chewable 81 mg PO QDAY Qty: 10 0RF simvastatin 40 mg Tablet 40 mg PO QPM Synjardy 12.5-1,000 mg tablet 1 tab PO BID levothyroxine 100 mcg tablet 100 mcg PO QDAY nitroglycerin 0.4 mg tablet, sublingual 0.4 mg BUCCAL Januvia 100 mg tablet 100 mg PO QDAY carvedilol 25 mg tablet 25 mg PO QDAY Referrals: Louisa Brown MD [Primary Care Provider] - In 1 week Problem List Clinical Impression: Acute pain of left lower extremity Patient/Caregiver Discharge Instructions Education Materials: ED Myalgias Additional Instructions: Please follow-up with your primary care provider in the next 24 to 48 hours Your ultrasounds were negative for any blood clot. Your blood work was within normal limits For any evidence of worsening sign or symptom return to the emergency room immediately Print Language: [place]ian Stand Alone Forms: Abigail Award Info., Patient Portal Info Letter PA/FOUNDRY HELPER Supervising Physician BEST/RENÉ Supervising Physician: Dr. Burnham
[2025-01-04 10:56] LABS: Basophils # (Auto) 0.1 Thou/mm3 (0.0-0.2); Basophils % (Auto) 1 % (0-2.5); Eosinophils # (Auto) 0.4 Thou/mm3 (0.0-0.5); Eosinophils % (Auto) 7 % (0-10); Hematocrit 33.8 % (36.0-46.0); Hemoglobin 10.2 g/dL (12.0-16.0); Immature Granulocytes Auto 0.02 Thou/mm3 (0.00-0.00); Lymphocytes # (Auto) 1.4 Thou/mm3 (1.0-4.8); Lymphocytes % (Auto) 23 % (10-50); Mean Corpuscular HGB Conc 30.2 g/dl (31.0-37.0); Mean Corpuscular Hemoglobin 23.1 pg (25.0-35.0); Mean Corpuscular Volume 77 fL (80-100); Monocytes # (Auto) 0.6 Thou/mm3 (0.0-0.8); Monocytes % (Auto) 9 % (0-12); Neutrophils # (Auto) 3.7 Thou/mm3 (1.8-7.7); Neutrophils % (Auto) 60 % (37-80); Nucleated Red Blood Cell # 0.00 Thou/mm3 (0.00-0.00); Nucleated Red Blood Cell % 0 /100 WBC (0); Platelet Count 290 Thou/mm3 (140-440); RDW Standard Deviation 50.9 fL (36.4-46.3); Red Blood Count 4.42 Miln/mm3 (4.00-5.20); White Blood Count 6.2 Thou/mm3 (3.6-11.0)
[2025-01-04 11:14] LABS: Alanine Aminotransferase 11 U/L (10-49); Albumin, Serum 4.5 gm/dL (3.4-4.8); Albumin/Globulin Ratio 1.6 (1.2-2.2); Alkaline Phosphatase 98 U/L (46-116); Anion Gap 14 (7-16); Aspartate Amino Transferase 16 U/L (0-34); BUN/Creatinine Ratio 20 Ratio (12-20); Bilirubin,Total 0.5 mg/dL (0.3-1.2); Blood Urea Nitrogen 16 mg/dL (9-23); Calcium 9.2 mg/dL (8.3-10.6); Calcium (Corrected) 9.2 mg/dL (8.5-10.1); Carbon Dioxide 24.5 mMol/L (20.0-31.0); Chloride 105 mMol/L (98-107); Creatinine (Component) 0.8 mg/dL (0.6-1.3); Estimated Creatinine Clearance 51.4 mL/min (>60); Globulin 2.9 gm/dL (2.3-3.5); Glucose 111 mg/dL (74-106); Osmolality,Calculated 287 (275-295); Potassium 4.9 mMol/L (3.4-5.1); Sodium 143 mMol/L (136-145); Total Protein 7.4 gm/dL (5.7-8.2); eGFR > 60 See Note
[2025-01-04 11:31] VITALS: BP 188/74; PULSE 61; RESP 18; TEMP 36.9; O2SAT 97
== END 2025-01-04 11:58 | disposition home or self-care (01) ==
PROVIDERS: Nurse Practitioner Family; Emergency Provider Family Medicine; PCP Family Medicine
DX: M79.605 Pain in left leg (principal)
CPT/HCPCS: 36415; 80053; 85025; 93971; 99283

== ENCOUNTER → 2025-01-07 | Outpatient (CLI) | payer MEDICARE, SELFPAY ==
[2025-01-07 14:48] LABS: Glucose Estimated Average 183 mg/dL (80-131); Hemoglobin A1C 8.0 % Hgb (4.8-6.0)
== END | disposition home or self-care (01) ==
LOC: COPL 14:07
PROVIDERS: PCP Family Medicine; Referring Provider Family Medicine; Visit Provider Family Medicine
DX: E11.65 Type 2 diabetes mellitus with hyperglycemia (principal)
CPT/HCPCS: 36415; 83036

== ENCOUNTER 2025-02-09 18:35 | Emergency (ER) | payer MEDICARE, SELFPAY ==
[2025-02-09 18:36] VITALS: BMI 29.9
--- NOTE | 2025-02-09 18:38 | EKG_ITS ---
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
--- NOTE | 2025-02-09 18:38 | XR_ITS ---
Examination: PA chest single view TECHNIQUE: Upright PA chest single view. Date and time: February 09, 2025, 1851 hours. INDICATIONS: Chest pain and bloody nose today. FINDINGS: Minimal prominence left ventricle. Ectatic thoracic aorta. No pneumonia or pulmonary edema. Prominent osteopenia. IMPRESSION: No pneumonia or pulmonary edema.
--- NOTE | 2025-02-09 18:39 | PD.EDCHEST ---
ED Chest Pain RME/HPI General Chief Complaint: Chest Pain Stated Complaint: CHEST PAIN WITH R. ARM NUMBNESS, NOSE BLEED Time Seen by Provider: 02/09/25 18:38 Source: patient Arrival date/time: 02/09/25 18:35 Limitations: no limitations RME / HPI RME / HPI narrative: Here today with a 1 hour history of chest pain radiating to her left arm. She describes this as a pressure. Has no dyspnea or lower leg edema. No fevers or chills. No near syncope. No abdominal pain, nausea, or vomiting. Hx of NSTEMI 2 years ago, she states this feels different. Related Data Home Medications ?Medication ?Instructions ?Recorded ?Confirmed empagliflozin 12.5 mg-metformin 1 tab PO BID 06/06/23 11/23/24 1,000 mg tablet (Synjardy) simvastatin 40 mg tablet 40 mg PO QPM 06/06/23 11/23/24 carvedilol 25 mg tablet 25 mg PO QDAY 11/23/24 11/23/24 levothyroxine 100 mcg tablet 100 mcg PO QDAY 11/23/24 11/23/24 nitroglycerin 0.4 mg sublingual 0.4 mg buccal 11/23/24 tablet sitagliptin phosphate 100 mg 100 mg PO QDAY 11/23/24 11/23/24 tablet (Januvia) Previous Rx's ?Medication ?Instructions ?Recorded aspirin 81 mg chewable tablet 81 mg PO QDAY #10 tabs 10/19/22 clopidogrel 75 mg tablet (Plavix) 75 mg PO QDAY #10 tabs 10/19/22 Allergies Allergy/AdvReac Type Severity Reaction Status Date / Time No Known Allergies Allergy Verified 02/09/25 18:36 Review of Systems Review of Systems Systems Reviewed: All systems reviewed, normal except as documented ED Exam General Limitations: Present no limitations General appearance: Present alert Head Head exam: Present atraumatic Eye Eye exam: Present normal appearance, PERRL and EOMI ENT ENT exam: Present normal exam, normal oropharynx and mucous membranes moist Neck Neck exam: Present normal inspection, full ROM and trachea midline Chest Chest inspection: Present normal inspection and symmetric chest wall rise Respiratory Respiratory exam: Present normal lung sounds bilaterally Cardiovascular Cardiovascular exam: Present regular rate, normal rhythm and normal heart sounds Abdominal Exam Abdominal exam: Present soft and normal bowel sounds Extremities Exam Extremities exam: Present normal inspection and full ROM Back Exam Back exam: Present normal inspection and full ROM Neurological Exam Neurological exam: Present alert and oriented X3 Psychiatric Psychiatric exam: Present normal affect and normal mood Skin Skin exam: Present warm, dry, intact and normal color Course Quality Measures none Orders Category Date Time Status EKG (ED ONLY) *Do not use* NOW Care 02/09/25 18:38 Completed EKG (ED Only) Stat Exams 02/09/25 18:38 Draft XR chest 1V Stat Exams 02/09/25 18:38 Completed BNP [B-Type Natriuretic Peptide] Stat Lab 02/09/25 18:46 Completed CBC Stat Lab 02/09/25 18:46 Completed CMP [Comprehensive Metabolic Panel] Stat Lab 02/09/25 18:46 Completed Lipase Stat Lab 02/09/25 18:46 Completed Mag [Magnesium] Stat Lab 02/09/25 18:46 Completed Troponin I Stat Lab 02/09/25 18:46 Completed Troponin I Stat Lab 02/09/25 20:33 Completed Aspirin Chew Med 02/09/25 18:39 Discontinued 162 mg PO X1 ONE Vital Signs Vital signs: Vital Signs Temperature 98.7 F 02/09/25 19:14 Pulse Rate 63 02/09/25 19:14 Respiratory Rate 16 02/09/25 19:14 Blood Pressure 148/66 H 02/09/25 19:14 Pulse Oximetry (%) 96 02/09/25 19:14 Oxygen Delivery Method Room Air 02/09/25 19:14 Chest Pain MDM Narrative MDM Narrative:: Here today with a 1 hour history of chest pain radiating to her left arm. She describes this as a pressure. Has no dyspnea or lower leg edema. No fevers or chills. No near syncope. No abdominal pain, nausea, or vomiting. Hx of NSTEMI 2 years ago, she states this feels different. On exam patient is non-toxic appearing an in no signs of distress. VSS. Work up is unremarkable including serial troponins. Patient is discharged from the ER and asked to follow up with her primary doctor and assessment specialist. Return here at any time for any emergent changes or concerns. Patient data External records reviewed:: [facility] previous records Clinical information provided by:: patient Social determinants that could affect healthcare access:: none Patient has the following chronic illnesses:: HTN, DM, hyperlipidemia How is presenting disease/condition affected by chronic disease/condition?: uneffected by Evaluation data The following diagnostics were reviewed and interpreted by me:: EKG tracing(s) (NSR at 61 bpm, no st changes or dynamic t-waves. RBB present. ) Lab and/or radiology exams considered but not ordered:: n/a Interpretation Summary: Work appears unremarkable with exception of a very mild elevated lipase Medications / Prescriptions Medications or Prescriptions considered but not ordered:: n/a Medication administrations:: Medication Administration History Discontinued Medications Aspirin (Aspirin 81 Mg Chew) 162 mg PO X1 ONE Stop: 02/09/25 18:40 Last Admin: 02/09/25 19:22 Dose: 162 mg Documented By: see above Consultations Consultation(s) initiated? (list below): No Diagnosis Chest Pain Differential Diagnosis: atypical chest pain, st elevation myocardial infarction, costochondritis and chest pain Most likely diagnosis given after review of the tests above:: non-cardiac chest pain Admission Indicated Admission indicated?: not indicated Admission Request Was there a request for admission?: No Disposition Plan Disposition Plan: Discharge Discharge Attestation Discharge Attestation: The patient and all family members were given an opportunity to ask questions and understood the discharge instructions. Discharge instructions specifically effects, indications for sooner follow up or return to the emergency department, and the expected course of current diagnosis. Patient condition: Stable Discharge Plan Plan Patient Disposition: HOME (Self Care) Patient condition on transfer: Stable Prescriptions/Referrals Prescriptions/Med Rec: No Action clopidogrel [Plavix] 75 mg tablet 75 mg PO QDAY Qty: 10 0RF aspirin 81 mg tablet,chewable 81 mg PO QDAY Qty: 10 0RF simvastatin 40 mg Tablet 40 mg PO QPM Synjardy 12.5-1,000 mg tablet 1 tab PO BID levothyroxine 100 mcg tablet 100 mcg PO QDAY nitroglycerin 0.4 mg tablet, sublingual 0.4 mg BUCCAL Januvia 100 mg tablet 100 mg PO QDAY carvedilol 25 mg tablet 25 mg PO QDAY Referrals: Louisa Brown MD [Primary Care Provider] - In 1 week Problem List Clinical Impression: Chest pain Patient/Caregiver Discharge Instructions Education Materials: ED Chest Pain, Noncardiac Additional Instructions: - Your workup today was unremarkable. - Please contact your primary doctor and assessment specialist to schedule close follow-up appointment. - Please return here at anytime for any worsening or emergent changes. Print Language: [place] Islander Stand Alone Forms: Abigail Award Info., Patient Portal Info Letter
[2025-02-09 18:59] LABS: Basophils # (Auto) 0.1 Thou/mm3 (0.0-0.2); Basophils % (Auto) 1 % (0-2.5); Eosinophils # (Auto) 0.5 Thou/mm3 (0.0-0.5); Eosinophils % (Auto) 8 % (0-10); Hematocrit 32.9 % (36.0-46.0); Hemoglobin 10.0 g/dL (12.0-16.0); Immature Granulocytes Auto 0.01 Thou/mm3 (0.00-0.00); Lymphocytes # (Auto) 1.6 Thou/mm3 (1.0-4.8); Lymphocytes % (Auto) 26 % (10-50); Mean Corpuscular HGB Conc 30.4 g/dl (31.0-37.0); Mean Corpuscular Hemoglobin 22.8 pg (25.0-35.0); Mean Corpuscular Volume 75 fL (80-100); Monocytes # (Auto) 0.6 Thou/mm3 (0.0-0.8); Monocytes % (Auto) 9 % (0-12); Neutrophils # (Auto) 3.4 Thou/mm3 (1.8-7.7); Neutrophils % (Auto) 55 % (37-80); Nucleated Red Blood Cell # 0.00 Thou/mm3 (0.00-0.00); Nucleated Red Blood Cell % 0 /100 WBC (0); Platelet Count 289 Thou/mm3 (140-440); RDW Standard Deviation 51.0 fL (36.4-46.3); Red Blood Count 4.38 Miln/mm3 (4.00-5.20); White Blood Count 6.2 Thou/mm3 (3.6-11.0)
[2025-02-09 19:14] VITALS: BP 148/66; PULSE 63; RESP 16; TEMP 37.1; O2SAT 96
[2025-02-09 19:21] LABS: B-Type Natriuretic Peptide 47 pg/mL (0-100)
[2025-02-09] MEDS: ASPIRIN 81 MG CHEW 162 MG PO (19:22)
[2025-02-09 19:23] LABS: Alanine Aminotransferase 12 U/L (10-49); Albumin, Serum 4.3 gm/dL (3.4-4.8); Albumin/Globulin Ratio 1.4 (1.2-2.2); Alkaline Phosphatase 92 U/L (46-116); Anion Gap 11 (7-16); Aspartate Amino Transferase 12 U/L (0-34); BUN/Creatinine Ratio 24 Ratio (12-20); Bilirubin,Total 0.3 mg/dL (0.3-1.2); Blood Urea Nitrogen 19 mg/dL (9-23); Calcium 9.5 mg/dL (8.3-10.6); Calcium (Corrected) 9.5 mg/dL (8.5-10.1); Carbon Dioxide 24.2 mMol/L (20.0-31.0); Chloride 106 mMol/L (98-107); Creatinine (Component) 0.8 mg/dL (0.6-1.3); Estimated Creatinine Clearance 56.5 mL/min (>60); Globulin 3.0 gm/dL (2.3-3.5); Glucose 134 mg/dL (74-106); Lipase 88 U/L (12-53); Magnesium 2.0 mg/dL (1.6-2.6); Osmolality,Calculated 285 (275-295); Potassium 4.3 mMol/L (3.4-5.1); Sodium 141 mMol/L (136-145); Total Protein 7.3 gm/dL (5.7-8.2); Troponin I < 0.020 ng/mL (0.0-0.045); eGFR > 60 See Note
[2025-02-09 21:07] LABS: Troponin I < 0.020 ng/mL (0.0-0.045)
[2025-02-09 22:03] VITALS: BP 132/72; PULSE 72; RESP 18; TEMP 36.7; O2SAT 98
== END 2025-02-09 22:04 | disposition home or self-care (01) ==
PROVIDERS: Physician Assistant Medical; Emergency Provider Emergency Medicine; PCP Family Medicine
DX: R07.9 Chest pain, unspecified (principal); I25.2 Old myocardial infarction
CPT/HCPCS: 36415; 71045; 80053; 83690; 83735; 83880; 84484; 85025; 93005; 99283; A9270

== ENCOUNTER → 2025-03-25 | Outpatient (CLI) | payer MEDICARE, SELFPAY ==
--- NOTE | 2025-03-25 08:00 | XR_ITS ---
Examination: Breast ultrasound, unilateral, left complete Date and time of exam: March 25 thousand 25, 0738 hours INDICATIONS: Left breast sonogram October 26, 2024 1:00 nodule 23 x 20 mm Technique: Real-time de la cruz scale ultrasonographic imaging performed left breast including all 4 quadrants as well as nipple retroareolar and axillary region. Findings: 1:00 intramammary lymph node 9 x 7 mm 2:00 cyst 7 x 7 mm 2:00 intramammary lymph node 6 x 6 mm 2:00 glandular tissue 21 x 14 mm Multiple small cysts IMPRESSION: BI-RADS Category 3: Probably benign findings One additional 6 month continued left breast sonogram recommended to document stability of probably benign glandular tissue in the 2:00 position left breast
--- NOTE | 2025-03-25 08:30 | XR_ITS ---
Examination: Diagnostic digital mammography, unilateral, left Computer aided detection 3-D breast Tomosynthesis, unilateral Date and time of exam: March 25, 2025, 0727 hours INDICATIONS: Mammogram November 05, 2024, May 04, 2024 focal asymmetry inner left breast, 1:00 nodule left breast 14 mm on mammogram November 05, 2024 Technique: Nonmagnified MLO, CC views of the left breast have been obtained, reconstructed from 3-D Tomosynthesis images. R2 computer aided detection program utilized for evaluation of suspicious masses and/or abnormal calcifications. 3-D Tomosynthesis images obtained. Findings: The breast is heterogeneously dense, which may obscure small masses Nodule 1:00 position, 20 mm 4 mm nodule inner left breast anterior depth Impression: BI-RADS Category 3: Probably benign findings Recommend 1 additional 6 month continued left mammogram follow-up to document stability of nodule versus glandular tissue 1:00 position left breast
== END | disposition home or self-care (01) ==
LOC: CDIM 07:15
PROVIDERS: PCP Family Medicine; Referring Provider Family Medicine; Visit Provider Family Medicine
DX: R92.332 Mammographic heterogeneous density, left breast (principal); R92.8 Other abnormal and inconclusive findings on diagnostic imaging of breast
CPT/HCPCS: 76641; 77061; 77065; G0279

== ENCOUNTER 2025-04-04 06:33 | Day surgery (SDC) | payer MEDICARE, SELFPAY ==
[2025-03-28 08:45] VITALS: BP 126/60; PULSE 63; RESP 15; O2SAT 96
[2025-04-02 14:20] VITALS: BMI 23.8
--- NOTE | 2025-04-03 07:00 | EKG_ITS ---
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
[2025-04-03 09:50] LABS: Basophils # (Auto) 0.1 Thou/mm3 (0.0-0.2); Basophils % (Auto) 1 % (0-2.5); Eosinophils # (Auto) 0.5 Thou/mm3 (0.0-0.5); Eosinophils % (Auto) 9 % (0-10); Hematocrit 35.2 % (36.0-46.0); Hemoglobin 10.2 g/dL (12.0-16.0); Immature Granulocytes Auto 0.01 Thou/mm3 (0.00-0.00); Lymphocytes # (Auto) 1.4 Thou/mm3 (1.0-4.8); Lymphocytes % (Auto) 25 % (10-50); Mean Corpuscular HGB Conc 29.0 g/dl (31.0-37.0); Mean Corpuscular Hemoglobin 21.5 pg (25.0-35.0); Mean Corpuscular Volume 74 fL (80-100); Monocytes # (Auto) 0.5 Thou/mm3 (0.0-0.8); Monocytes % (Auto) 8 % (0-12); Neutrophils # (Auto) 3.2 Thou/mm3 (1.8-7.7); Neutrophils % (Auto) 58 % (37-80); Nucleated Red Blood Cell # 0.00 Thou/mm3 (0.00-0.00); Nucleated Red Blood Cell % 0 /100 WBC (0); Platelet Count 325 Thou/mm3 (140-440); RDW Standard Deviation 49.6 fL (36.4-46.3); Red Blood Count 4.74 Miln/mm3 (4.00-5.20); White Blood Count 5.6 Thou/mm3 (3.6-11.0)
[2025-04-03 09:55] LABS: Anion Gap 12 (7-16); BUN/Creatinine Ratio 28 Ratio (12-20); Blood Urea Nitrogen 25 mg/dL (9-23); Calcium 10.2 mg/dL (8.3-10.6); Carbon Dioxide 24.8 mMol/L (20.0-31.0); Chloride 107 mMol/L (98-107); Creatinine (Component) 0.9 mg/dL (0.6-1.3); Estimated Creatinine Clearance 42.1 mL/min (>60); Glucose 104 mg/dL (74-106); Osmolality,Calculated 291 (275-295); Potassium 4.9 mMol/L (3.4-5.1); Sodium 144 mMol/L (136-145); eGFR > 60 See Note
[2025-04-03 10:04] LABS: INR 0.9 (0.9-1.3); Partial Thromboplastin Time 26.8 Seconds (22.0-36.0); Prothrombin Time 9.6 Seconds (9.0-12.2)
[2025-04-03 10:06] LABS: COVID-19 Antigen (In-House) Negative (Negative)
[2025-04-04] VITALS (12 sets, daily range): BP systolic 107–165; BP diastolic 49–92; PULSE 61–68; RESP 15–19; TEMP 36.2–36.9; O2SAT 92–100
[2025-04-04] MEDS: DIAZEPAM 5 MG TABLET PO (07:19)
--- NOTE | 2025-04-04 08:08 | ESOP_ITS ---
Cardiac Cath Procedure Procedure Narrative Procedure date 04/04/2025 Title of the procedure 1.left heart catheterization 2.left coronary angiogram 3.right coronary angiogram 4.left ventriculogram 5.conscious sedation 6.radiographic interpretation supervision 7.ultrasound guidance for right radial access Indication for the procedure This is a 74-year-old female with past medical history of hypertension hyperlipidemia diabetes Complains of atypical chest pain Cardiolite scan was abnormal Cardiac catheter and cholangiogram recommended Procedure This is done in the cardiac lab under current electrocardiographic monitoring intermittent blood pressure monitoring right radial access obtained using modified Seldinger technique and 6 Italian sheath was placed TIG 4 catheter used for selective in the right coronary artery JL 3.5 catheter used for selective in the left coronary artery TIG 4 catheter used for left ventriculogram Hemodynamics Overall left ventricular systolic function appears normal Approximate ejection fraction 55% End-diastolic pressure was 18 mmHg Coronary anatomy 1.left main coronary artery appears normal 2.left anterior descending artery in the midsegment is diffusely diseased heavy calcification 70 to 80% lesion noted after the first diagonal 3.diagonal is diffusely diseased about 50% 4.circumflex has luminal irregularities in the mid and distal segments 5.obtuse marginal appears to have luminal irregularities 6.right coronary is a dominant vessel 7.ostium of the right coronary has about 50% lesion, mid to distally about 30% lesion Conclusion Significant heavily calcified lesion in the mid LAD Intervention will be done with Rotablator
== END 2025-04-04 11:25 | disposition home or self-care (01) ==
PROVIDERS: PCP Family Medicine; Referring Provider Internal Medicine; Visit Provider Internal Medicine
PROC: (CPT 93458; principal; 2025-04-04 07:30)
DX: I25.10 Atherosclerotic heart disease of native coronary artery without angina pectoris (principal); E11.9 Type 2 diabetes mellitus without complications; I10 Essential (primary) hypertension; E78.5 Hyperlipidemia, unspecified; Z98.62 Peripheral vascular angioplasty status; Z79.82 Long term (current) use of aspirin; Z79.01 Long term (current) use of anticoagulants; Z79.02 Long term (current) use of antithrombotics/antiplatelets; Z79.84 Long term (current) use of oral hypoglycemic drugs; Z79.899 Other long term (current) drug therapy; Z01.810 Encounter for preprocedural cardiovascular examination
CPT/HCPCS: 93458; 36415; 80048; 85025; 85610; 85730; 87811; 93005; 99152; A4649; C1769; C1887; C1894; J0153; J0168; J0282; J0461; J0583; J1643; J2250; J2312; J2371; J3010; J3490; Q9967; A9270; C1725; J2305

== ENCOUNTER → 2025-04-12 | Outpatient (CLI) | payer MEDICARE, SELFPAY ==
[2025-04-12 15:41] LABS: Glucose Estimated Average 146 mg/dL (80-131); Hemoglobin A1C 6.7 % Hgb (4.8-6.0)
[2025-04-12 15:45] LABS: Anion Gap 12 (7-16); BUN/Creatinine Ratio 29 Ratio (12-20); Blood Urea Nitrogen 23 mg/dL (9-23); Calcium 9.2 mg/dL (8.3-10.6); Carbon Dioxide 23.5 mMol/L (20.0-31.0); Chloride 109 mMol/L (98-107); Creatinine (Component) 0.8 mg/dL (0.6-1.3); Glucose 78 mg/dL (74-106); Osmolality,Calculated 289 (275-295); Potassium 4.3 mMol/L (3.4-5.1); Sodium 144 mMol/L (136-145); eGFR > 60 See Note
== END | disposition home or self-care (01) ==
LOC: COPL 14:42
PROVIDERS: PCP Family Medicine; Referring Provider Family Medicine; Visit Provider Family Medicine
DX: E11.65 Type 2 diabetes mellitus with hyperglycemia (principal)
CPT/HCPCS: 36415; 80048; 83036

== ENCOUNTER 2025-04-22 20:58 | Emergency (ER) | payer MEDICARE, SELFPAY ==
[2025-04-22 21:06] VITALS: BP 181/84; PULSE 64; RESP 20; TEMP 37.2; O2SAT 97
--- NOTE | 2025-04-22 21:07 | EKG_ITS ---
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
--- NOTE | 2025-04-22 21:07 | XR_ITS ---
EXAMINATION: AP chest single view TECHNIQUE: AP portable upright chest single view Date and time: April 22, 2025, 213 hours, comparison February 09, 2025 INDICATIONS: Chest pain today. FINDINGS: Mild enlargement left ventricle Ectatic enlarged thoracic aorta. No pneumonia or pulmonary edema. Moderate osteopenia IMPRESSION: No pneumonia or pulmonary edema
--- NOTE | 2025-04-22 21:08 | PD.EDADULT ---
ED General RME/HPI General Chief complaint: Dizziness Stated complaint: DIZZINESS Time Seen by Provider: 04/22/25 21:06 Arrival date/time: 04/22/25 20:58 CC: Chest pain with dizziness HPI EMS report the patient stood up and became slightly dizzy, with a mild chest pain. The patient is highly anxious. Onset at 5 PM this afternoon approximately 4 hours ago he is unable to get up to get medication to relieve her symptoms. Patient denies nausea vomiting abdominal pain back pain shortness of breath or difficulty breathing primary Related Data Home Medications ?Medication ?Instructions ?Recorded ?Confirmed simvastatin 40 mg tablet 40 mg PO QPM 06/06/23 04/04/25 carvedilol 25 mg tablet 25 mg PO QDAY 11/23/24 04/04/25 levothyroxine 100 mcg tablet 100 mcg PO QDAY 11/23/24 04/04/25 empagliflozin 12.5 mg-metformin 1 tab PO BID 04/04/25 04/04/25 1,000 mg tablet (Synjardy) tirzepatide 5 mg/0.5 mL 5 mg subcut QWEEK 04/04/25 04/04/25 subcutaneous pen injector (Mojerad) Previous Rx's ?Medication ?Instructions ?Recorded aspirin 81 mg chewable tablet 81 mg PO QDAY #10 tabs 10/19/22 clopidogrel 75 mg tablet (Plavix) 75 mg PO QDAY #10 tabs 10/19/22 meclizine 25 mg tablet 25 mg PO QDAY PRN dizziness #14 04/22/25 tabs Allergies Allergy/AdvReac Type Severity Reaction Status Date / Time No Known Allergies Allergy Verified 02/09/25 18:36 Review of Systems Review of Systems Narrative Review of Systems: GEN: No fever, no chills, no weight loss EYES: No discharge, no visual changes, no pain HEENT: No ear pain, no congestion, no sore throat PULM: No shortness of breath, no cough, no congestion CV: + chest pain, no dyspnea on exertion, no palpitations GI: + nausea, no vomiting, no diarrhea, no pain, no constipation : No frequency, no urgency, no dysuria MUSC/SKEL: No joint pain, no back pain SKIN: No rash PSYCH: No hallucinations, no depression HEME/LYMPH: No easy bleeding or bruising tendencies NEURO: No weakness, + headache ED Exam Narrative Physical exam: [General: Anxious but not in any acute distress Head normocephalic HEENT: Eyes pupils are PERRLA EOMs are intact mouth poor dentition [place] moist membranes uvula is midline swallow symmetrical phonation is normal. All other subsystems of HEENT are within acceptable limits Neck is supple nontender Chest equal chest rise nontender to palpation Respiratory: Clear to auscultation no wheezes crackles or rubs CV: Rate rhythm is regular no murmurs rubs or clicks Abdomen is distended secondary to body habitus soft nontender no masses positive bowel sounds all 4 quadrants Back: No CVA tenderness no spinous process tenderness from cervical spine thoracic and lumbar spine Skin: Intact no petechiae rash induration ulceration or crepitus Extremities: Moving all extremity against resistance cap refill less than 2 seconds neurosensory intact. No lower extremity edema Neuro: Awake alert oriented x2, person and place, Glascow coma 15 no focal deficits] Course Quality Measures none Orders Category Date Time Status EKG (ED ONLY) *Do not use* NOW Care 04/22/25 21:07 Completed EKG (ED Only) Stat Exams 04/22/25 21:07 Ordered XR chest 1V Stat Exams 04/22/25 21:07 Taken B-Type Natriuretic Peptide Stat Lab 04/22/25 21:12 Completed CBC Stat Lab 04/22/25 21:12 Completed Comprehensive Metabolic Panel Stat Lab 04/22/25 21:12 Completed Drug Screen,Urine Stat Lab 04/22/25 22:13 Completed Free T4 (Free Thyroxine) Stat Lab 04/22/25 21:12 Completed LDH (Lactate Dehydrogenase) Stat Lab 04/22/25 21:12 Completed Magnesium Stat Lab 04/22/25 21:12 Completed Partial Thromboplastin Time Stat Lab 04/22/25 21:12 Completed Prothrombin Time with INR Stat Lab 04/22/25 21:12 Completed Thyroid Stimulating Hormone Stat Lab 04/22/25 21:12 Completed Troponin I Stat Lab 04/22/25 21:12 Completed Urinalysis, C/S if Indicated Stat Lab 04/22/25 22:13 Completed Acetaminophen Ivpb [Ofirmev Inj] Med 04/22/25 21:32 Discontinued 1,000 mg in 100 ml IV NOW Meclizine HCl [Antivert] Med 04/22/25 21:26 Discontinued 25 mg PO X1 ONE Vital Signs Vital signs: Vital Signs Temperature 98.9 F 04/22/25 21:06 Pulse Rate 64 04/22/25 21:06 Respiratory Rate 20 04/22/25 21:06 Blood Pressure 181/84 H 04/22/25 21:06 Pulse Oximetry (%) 97 04/22/25 21:06 Oxygen Delivery Method Room Air 04/22/25 21:06 Discharge Plan Plan Patient Disposition: HOME (Self Care) Patient condition on transfer: Stable Prescriptions/Referrals Prescriptions/Med Rec: New meclizine 25 mg tablet 25 mg PO QDAY PRN (Reason: dizziness) Qty: 14 0RF No Action clopidogrel [Plavix] 75 mg tablet 75 mg PO QDAY Qty: 10 0RF aspirin 81 mg tablet,chewable 81 mg PO QDAY Qty: 10 0RF simvastatin 40 mg Tablet 40 mg PO QPM levothyroxine 100 mcg tablet 100 mcg PO QDAY carvedilol 25 mg tablet 25 mg PO QDAY Synjardy 12.5-1,000 mg tablet 1 tab PO BID Mounjaro 5 mg/0.5 mL pen injector 5 mg subcut QWEEK Problem List Clinical Impression: Chest pain, Headache, Vertigo Patient/Caregiver Discharge Instructions Print Language: Czech Stand Alone Forms: [employer] Award Info., Patient Portal Info Letter MDM Clinical Information Provided by: patient and EMS [facility] Meds/Rx considered, not ordered None Labs/Rad/Tests considered, not ordered None Chronic Illness/Social Conditions Explain: CAD review the medical record show the patient with angiogram done by Dr. Reed from April 04 which showed heavy calcification of LAD 50% requiring more advanced procedure. Patient is aware EKG Interpretation EKG #1: EKG Interpretation: EKG performed at 2123 shows a ventricular rate of 6 6 [place] interval 207 QRS 152 QTc of 462 sinus rhythm left axis deviation with right bundle branch block. When compared to old EKG several weeks ago, there is no significant change in morphology. Labs Labs: interpreted by ca Lab(s) Interpretation(s): CBC shows no acute leukocytosis. Stable anemia with a hemoglobin of 9.7 hematocrit of 32.7 platelets of 282. CMP shows a chloride of 113 glucose 129 no other electrolyte imbalances renal impairment transaminitis or T. bili elevation Troponin is undetectable BNP is 51. TSH 0.54 free T41.44. Urine is unremarkable. UDS is negative. Imaging Imaging interpretation: interpreted by me Imaging Interpretation(s): Chest x-ray shows no pneumonia or pulmonary edema. Medication Administration(s) Medication Administration History Discontinued Medications Acetaminophen (Ofirmev Inj) 1,000 mg in 100 mls @ 250 mls/hr IV NOW ONE Stop: 04/22/25 21:55 Last Admin: 04/22/25 21:42 Dose: 250 mls/hr Documented By: DT Meclizine HCl (Meclizine Hcl 25 Mg Tablet) 25 mg PO X1 ONE Stop: 04/22/25 21:27 Last Admin: 04/22/25 21:42 Dose: 25 mg Documented By: DT Diagnosis Differential Diagnosis ED Complaint MDM: ACS OR pneumonia vertigo
[2025-04-22 21:11] VITALS: PULSE 69; RESP 12; O2SAT 99; BMI 26.5
[2025-04-22 21:24] VITALS: BP 181/84; PULSE 67; RESP 14; TEMP 37; O2SAT 99
[2025-04-22 21:27] LABS: Basophils # (Auto) 0.1 Thou/mm3 (0.0-0.2); Basophils % (Auto) 1 % (0-2.5); Eosinophils # (Auto) 0.3 Thou/mm3 (0.0-0.5); Eosinophils % (Auto) 8 % (0-10); Hematocrit 32.7 % (36.0-46.0); Hemoglobin 9.7 g/dL (12.0-16.0); Immature Granulocytes Auto 0.01 Thou/mm3 (0.00-0.00); Lymphocytes # (Auto) 1.3 Thou/mm3 (1.0-4.8); Lymphocytes % (Auto) 31 % (10-50); Mean Corpuscular HGB Conc 29.7 g/dl (31.0-37.0); Mean Corpuscular Hemoglobin 21.7 pg (25.0-35.0); Mean Corpuscular Volume 73 fL (80-100); Monocytes # (Auto) 0.5 Thou/mm3 (0.0-0.8); Monocytes % (Auto) 13 % (0-12); Neutrophils # (Auto) 2.0 Thou/mm3 (1.8-7.7); Neutrophils % (Auto) 48 % (37-80); Nucleated Red Blood Cell # 0.00 Thou/mm3 (0.00-0.00); Nucleated Red Blood Cell % 0 /100 WBC (0); Platelet Count 282 Thou/mm3 (140-440); RDW Standard Deviation 50.6 fL (36.4-46.3); Red Blood Count 4.48 Miln/mm3 (4.00-5.20); White Blood Count 4.3 Thou/mm3 (3.6-11.0)
[2025-04-22] MEDS: MECLIZINE HCL 25 MG TABLET PO (21:42)
[2025-04-22] MEDS: ACETAMINOPHEN IVPB 1,000 MG/100 ML VIAL 250 MG IV (21:42)
[2025-04-22 21:51] LABS: B-Type Natriuretic Peptide 51 pg/mL (0-100)
[2025-04-22 21:56] LABS: Alanine Aminotransferase 12 U/L (10-49); Albumin, Serum 4.5 gm/dL (3.4-4.8); Albumin/Globulin Ratio 2.0 (1.2-2.2); Alkaline Phosphatase 99 U/L (46-116); Anion Gap 8 (7-16); Aspartate Amino Transferase 19 U/L (0-34); BUN/Creatinine Ratio 20 Ratio (12-20); Bilirubin,Total 0.3 mg/dL (0.3-1.2); Blood Urea Nitrogen 14 mg/dL (9-23); Calcium 9.2 mg/dL (8.3-10.6); Calcium (Corrected) 9.2 mg/dL (8.5-10.1); Carbon Dioxide 22.7 mMol/L (20.0-31.0); Chloride 113 mMol/L (98-107); Creatinine (Component) 0.7 mg/dL (0.6-1.3); Estimated Creatinine Clearance 62.3 mL/min (>60); Free T4 (Free Thyroxine) 1.44 ng/dL (0.89-1.76); Globulin 2.3 gm/dL (2.3-3.5); Glucose 129 mg/dL (74-106); LDH (Lactate Dehydrogenase) 207 U/L (120-246); Magnesium 2.2 mg/dL (1.6-2.6); Osmolality,Calculated 289 (275-295); Potassium 4.4 mMol/L (3.4-5.1); Sodium 144 mMol/L (136-145); Thyroid Stimulating Hormone 0.54 uIU/mL (0.55-4.78); Total Protein 6.8 gm/dL (5.7-8.2); Troponin I < 0.002 ng/mL (0.0-0.045); eGFR > 60 See Note
[2025-04-22 22:16] LABS: INR 0.9 (0.9-1.3); Partial Thromboplastin Time 27.9 Seconds (22.0-36.0); Prothrombin Time 10.0 Seconds (9.0-12.2)
[2025-04-22 22:27] LABS: Collection Type, Urine Clean Catch
[2025-04-22 22:35] LABS: Bilirubin,Urine Negative (Negative); Blood,Urine Negative (Negative); Clarity,Urine Clear (Clear/Hazy); Color,Urine Colorless (Lt Yel-Yel); Culture Indicated,Urine Not Indicated; Glucose, Urine 4+ (Negative); Ketones,Urine Negative (Negative); Leukocyte Esterase,Urine Negative (Negative); Nitrite,Urine Negative (Negative); PH,Urine 8.0 (5.0-7.0); Protein,Urine Negative (Neg - Trace); RBC,Urine 2 /hpf (0-3); Specific Gravity,Urine 1.015 (1.001-1.035); Squamous Epithelial Cell,Urine < 1 /hpf (0-5); Urobilinogen,Urine Negative mg/dL (0.0-1.0); WBC,Urine < 1 /hpf (0-5)
[2025-04-22 22:38] LABS: Amphetamine/Methamp Scrn,U Negative (Negative); Barbiturate Screen,Urine Negative (Negative); Benzodiazepines Screen,Urine Negative (Negative); Benzoylecgonine Screen, Ur Negative (Negative); Fentanyl Screen,Urine Negative (Negative); Opiate Screen,Urine Negative (Negative); THC Screen,Urine Negative (Negative)
[2025-04-22 23:29] VITALS: BP 148/85; PULSE 78; RESP 14; TEMP 37; O2SAT 99
== END 2025-04-22 23:30 | disposition home or self-care (01) ==
LOC: SERX 23:07
PROVIDERS: Registered Nurse General Practice; Emergency Provider Emergency Medicine; PCP Family Medicine
DX: I25.10 Atherosclerotic heart disease of native coronary artery without angina pectoris (principal); I45.10 Unspecified right bundle-branch block; R07.9 Chest pain, unspecified; R51.9 Headache, unspecified; R42 Dizziness and giddiness
CPT/HCPCS: 36415; 71045; 80053; 80307; 81001; 83615; 83735; 83880; 84439; 84443; 84484; 85025; 85610; 85730; 93005; 96365; 99284; J0131; A9270

== ENCOUNTER → 2025-04-26 | Outpatient (CLI) | payer MEDICARE, SELFPAY ==
[2025-04-26 14:47] LABS: Sed Rate (ESR) 9 mm/hr (0-30)
[2025-04-26 14:49] LABS: RA Screen Negative (Negative)
== END | disposition home or self-care (01) ==
LOC: COPL 13:42
PROVIDERS: PCP Family Medicine; Referring Provider Family Medicine; Visit Provider Family Medicine
DX: M25.50 Pain in unspecified joint (principal)
CPT/HCPCS: 36415; 85652; 86430

== ENCOUNTER → 2025-05-03 | Outpatient (CLI) | payer MEDICARE, SELFPAY ==
[2025-05-03 16:15] LABS: Basophils # (Auto) 0.1 Thou/mm3 (0.0-0.2); Basophils % (Auto) 1 % (0-2.5); Eosinophils # (Auto) 0.5 Thou/mm3 (0.0-0.5); Eosinophils % (Auto) 8 % (0-10); Hematocrit 34.0 % (36.0-46.0); Hemoglobin 10.2 g/dL (12.0-16.0); Immature Granulocytes Auto 0.01 Thou/mm3 (0.00-0.00); Lymphocytes # (Auto) 1.6 Thou/mm3 (1.0-4.8); Lymphocytes % (Auto) 29 % (10-50); Mean Corpuscular HGB Conc 30.0 g/dl (31.0-37.0); Mean Corpuscular Hemoglobin 22.2 pg (25.0-35.0); Mean Corpuscular Volume 74 fL (80-100); Monocytes # (Auto) 0.4 Thou/mm3 (0.0-0.8); Monocytes % (Auto) 8 % (0-12); Neutrophils # (Auto) 3.0 Thou/mm3 (1.8-7.7); Neutrophils % (Auto) 54 % (37-80); Nucleated Red Blood Cell # 0.00 Thou/mm3 (0.00-0.00); Nucleated Red Blood Cell % 0 /100 WBC (0); Platelet Count 308 Thou/mm3 (140-440); RDW Standard Deviation 51.5 fL (36.4-46.3); Red Blood Count 4.59 Miln/mm3 (4.00-5.20); White Blood Count 5.6 Thou/mm3 (3.6-11.0)
[2025-05-03 16:28] LABS: Anion Gap 12 (7-16); BUN/Creatinine Ratio 21 Ratio (12-20); Blood Urea Nitrogen 17 mg/dL (9-23); Calcium 9.4 mg/dL (8.3-10.6); Carbon Dioxide 23.3 mMol/L (20.0-31.0); Chloride 111 mMol/L (98-107); Creatinine (Component) 0.8 mg/dL (0.6-1.3); Glucose 112 mg/dL (74-106); Osmolality,Calculated 293 (275-295); Potassium 4.2 mMol/L (3.4-5.1); Sodium 146 mMol/L (136-145); eGFR > 60 See Note
[2025-05-03 17:44] LABS: INR 0.9 (0.9-1.3); Partial Thromboplastin Time 27.6 Seconds (22.0-36.0); Prothrombin Time 9.8 Seconds (9.0-12.2)
== END | disposition home or self-care (01) ==
LOC: COPL 15:01
PROVIDERS: PCP Family Medicine; Referring Provider Internal Medicine; Visit Provider Internal Medicine
DX: I25.10 Atherosclerotic heart disease of native coronary artery without angina pectoris (principal); I48.91 Unspecified atrial fibrillation
CPT/HCPCS: 36415; 80048; 85025; 85610; 85730

== ENCOUNTER → 2025-05-31 | Outpatient (CLI) | payer MEDICARE, SELFPAY ==
[2025-05-31 16:26] LABS: Basophils # (Auto) 0.1 Thou/mm3 (0.0-0.2); Basophils % (Auto) 1 % (0-2.5); Eosinophils # (Auto) 0.5 Thou/mm3 (0.0-0.5); Eosinophils % (Auto) 10 % (0-10); Hematocrit 30.9 % (36.0-46.0); Hemoglobin 9.1 g/dL (12.0-16.0); Immature Granulocytes Auto 0.01 Thou/mm3 (0.00-0.00); Lymphocytes # (Auto) 1.5 Thou/mm3 (1.0-4.8); Lymphocytes % (Auto) 28 % (10-50); Mean Corpuscular HGB Conc 29.4 g/dl (31.0-37.0); Mean Corpuscular Hemoglobin 21.6 pg (25.0-35.0); Mean Corpuscular Volume 73 fL (80-100); Monocytes # (Auto) 0.4 Thou/mm3 (0.0-0.8); Monocytes % (Auto) 8 % (0-12); Neutrophils # (Auto) 2.8 Thou/mm3 (1.8-7.7); Neutrophils % (Auto) 53 % (37-80); Nucleated Red Blood Cell # 0.00 Thou/mm3 (0.00-0.00); Nucleated Red Blood Cell % 0 /100 WBC (0); Platelet Count 317 Thou/mm3 (140-440); RDW Standard Deviation 52.6 fL (36.4-46.3); Red Blood Count 4.22 Miln/mm3 (4.00-5.20); White Blood Count 5.3 Thou/mm3 (3.6-11.0)
[2025-05-31 16:40] LABS: Glucose Estimated Average 160 mg/dL (80-131); Hemoglobin A1C 7.2 % Hgb (4.8-6.0)
[2025-05-31 16:48] LABS: Alanine Aminotransferase 16 U/L (10-49); Albumin, Serum 4.6 gm/dL (3.4-4.8); Albumin/Globulin Ratio 1.6 (1.2-2.2); Alkaline Phosphatase 139 U/L (46-116); Anion Gap 14 (7-16); Aspartate Amino Transferase 16 U/L (0-34); BUN/Creatinine Ratio 21 Ratio (12-20); Bilirubin,Total 0.3 mg/dL (0.3-1.2); Blood Urea Nitrogen 17 mg/dL (9-23); Calcium 9.3 mg/dL (8.3-10.6); Calcium (Corrected) 9.3 mg/dL (8.5-10.1); Carbon Dioxide 23.0 mMol/L (20.0-31.0); Chloride 108 mMol/L (98-107); Creatinine (Component) 0.8 mg/dL (0.6-1.3); Free T4 (Free Thyroxine) 1.39 ng/dL (0.89-1.76); Globulin 2.9 gm/dL (2.3-3.5); Glucose 217 mg/dL (74-106); Osmolality,Calculated 297 (275-295); Potassium 4.0 mMol/L (3.4-5.1); Sodium 145 mMol/L (136-145); Thyroid Stimulating Hormone 1.63 uIU/mL (0.55-4.78); Total Protein 7.5 gm/dL (5.7-8.2); eGFR > 60 See Note
== END | disposition home or self-care (01) ==
LOC: COPL 14:56
PROVIDERS: PCP Family Medicine; Referring Provider Family Medicine; Visit Provider Family Medicine
DX: E11.65 Type 2 diabetes mellitus with hyperglycemia (principal); E03.9 Hypothyroidism, unspecified
CPT/HCPCS: 36415; 80053; 83036; 84439; 84443; 85025